=== PATIENT | male | born 1945 | race Hispanic/Latino ===

== ENCOUNTER → 2019-06-05 | Outpatient (CLI) | payer MEDICARE, OTHER ==
[~2019-06-05] MED LIST: ACTONEL150 MG PO; ASPIR 8181 MG PO; NAPROXEN500 MG PO; NEXIUM40 MG PO; PRAVASTATIN SOD40 MG PO
--- NOTE | 2019-06-05 16:40 | Diagnostic Imaging Report ---
EXAM: lumbar spine, 4 view Sacrum, 2 view DATE: 06/05/2019 INDICATION: Low back pain COMPARISON: None FINDINGS: No acute fracture or dislocation. There is grade 1 anterolisthesis of L5 on S1 with likely L5 pars defects. Moderate degenerative changes centered about L5-S1 with disc space narrowing, facet arthropathy and osteophyte formation. Surgical clips overlie the pelvis. IMPRESSION: No acute osseous injury. Degenerative changes with grade 1 anterolisthesis of L5 on S1. Signed by: Bianka Roman MD on 06/05/2019 4:37 PM
== END ==
LOC: RAD 15:28
PROVIDERS: ATTEND Internal Medicine
DX: M54.5 Low back pain (principal); M81.0 Age-related osteoporosis without current pathological fracture
CPT/HCPCS: 72110; 72220

== ENCOUNTER → 2019-07-17 | Outpatient (CLI) | payer MEDICARE, OTHER ==
--- NOTE | 2019-07-17 11:01 | Diagnostic Imaging Report ---
Chest, 2 views, 07/17/2019. History: Cough. Comparison: None available. Findings: The cardiomediastinal silhouette and pulmonary vasculature are within normal limits. There is biapical pleural thickening. The lungs are clear without evidence of consolidation or pleural effusion. Mild degenerative changes are noted in the thoracic spine. There are no acute osseous or soft tissue abnormalities. Impression: No acute cardiopulmonary abnormality. Signed by: Rosalio Valerio on 07/17/2019 10:58 AM
== END ==
LOC: RAD 10:10
PROVIDERS: ATTEND Internal Medicine
DX: J41.0 Simple chronic bronchitis (principal)
CPT/HCPCS: 71046

== ENCOUNTER → 2019-09-04 | Outpatient (CLI) | payer MEDICARE, OTHER ==
--- NOTE | 2019-09-04 14:52 | Diagnostic Imaging Report ---
Exam: Chest radiograph Clinical History: Chest pain Comparison: July 17, 2019 Findings: The cardiomediastinal silhouette and lungs are normal. The regional skeleton and soft tissue are unremarkable. There is no evidence of pleural effusion or pneumothorax. Impression: No radiographic evidence of acute cardiopulmonary disease. Mildly prominent bowel loops are noted below the left hemidiaphragm with air-fluid level which may represent ileus or enteritis. Recommend clinical correlation. Signed by: Dr. Jaun Martin MD on 09/04/2019 2:49 PM
== END ==
LOC: RAD 13:37
PROVIDERS: ATTEND Internal Medicine
DX: R07.89 Other chest pain (principal)
CPT/HCPCS: 71046

== ENCOUNTER → 2019-09-10 | Outpatient (CLI) | payer MEDICARE, OTHER ==
--- NOTE | 2019-09-10 19:01 | Diagnostic Imaging Report ---
Exam: Abdominal film Clinical History: Distended abdomen, possible ileus Comparison: None. DISCUSSION: Frontal view of the abdomen shows moderate to large amount of retained stool.Mild dilation of the transverse colon at the splenic flexure, which measures 7.7 cm in transverse diameter. No air-filled, dilated loops of small bowel. There are no abnormal calcifications. No pneumoperitoneum. Metallic clips project over the right hemiabdomen. IMPRESSION: 1. Mild dilation of the transverse colon at the splenic flexure. Moderate to large amount of retained stool suggesting constipation. No air-filled, dilated loops of small bowel. The staff physician below has personally reviewed this exam on the date of dictation. Signed by: Dr. Jose Rendon M.D. on 09/10/2019 6:58 PM
== END ==
LOC: RAD 17:07
PROVIDERS: ATTEND Internal Medicine
DX: K56.7 Ileus, unspecified (principal)
CPT/HCPCS: 74018

== ENCOUNTER 2020-02-28 18:28 | Observation (INO) | payer MEDICARE, OTHER ==
[~2020-02-28] VITALS: Ht 175.3 cm; Wt 83.9 kg
--- OUTSIDE RECORDS SUMMARY | 2020-02-28 18:32 | XMS REPORT ---
Author Author [facility] Address Unknown Phone Unavailable Care Team Providers Care Inventory Worker Name Role Phone Breann LOPEZ Unavailable Unavailable Problems This patient has no known problems. Allergies, Adverse Reactions, Alerts This patient has no known allergies or adverse reactions. Medications This patient has no known medications. Results Test Description Test Time Test Comments Text Results Atomic Results Result Comments ABDOMEN-1VIEW (KU) 2019-09-10 18:56:00 [place] [address] Patient Name: LENIN SPENCER MR #: [id number] : 1945 Age/Sex: 73/M Req #: [id number] Adm Physician: Ordered by: ROSIE LOPEZ MD Report #: [id number] Location: [facility] Room/Bed: Procedure: [id number] DX/ABDOMEN-1VIEW (KU) Exam Date: 09/10/19 Exam Time: 1710 REPORT STATUS: Signed Exam: Abdominal film Clinical History: Disten ded abdomen, possible ileus Comparison: None. DISCUSSION: Frontal view of the abdomen shows moderate to large amount of retained stool.Mild dilation of the transverse colon at the splenic flexure, which measures 7.7 cm in transverse diameter. No air-filled, dilated loops of small bowel. There are no abnormal calcifications. No pneumoperitoneum. Metallic clips project over the right hemiabdomen. IMPRESSION: 1. Mild dilation of the transverse colon at the splenic flexure. Moderate to large amount of retained stool suggesting constipation. No air-filled, dilated loops of small bowel. The staff physician below has personally reviewed this exam on the date of dictation. Signed by: Dr. Patsy Rendon M.D. on 09/10/2019 6:58 PM Dictated By: PATSY RENDON MD 57 Transcribed By: TYE on 09/10/191857 COPY TO: ROSIE LOPEZ MD CHEST 2 VIEWS 2019-09-04 14:46:00 [place] [address] Patient Name: LENIN SPENCER MR #: [id number] : 1945 Age/Sex: 73/M Req #: [id number] Adm Physician: Ordered by: ROSIE LOPEZ MD Report #: [id number] Location: [facility] Room/Bed: Procedure: [id number] DX/CHEST 2 VIEWS Exam Date: 09/04/19 Exam Time: 1410 REPORT STATUS: Signed Exam: Chest radiograph Clinical History: Chest pain Comparison: July 17, 2019 Findings: The cardiomediastinal silhouette and lungs are normal. The regional skeleton and soft tissue are unremarkable. There is no evidence of pleural effusion or pneumothorax. Impression: No radiographic evidence of acute cardiopulmonary disease. Mildly prominent bowel loops are noted below the left hemidiaphragm with air-fluid level which may represent ileus or enteritis. Recommend clinical correlation. Signed by: Dr. Jaun Martin MD on 09/04/2019 2:49 PM Dictated By: MARYURI MARTIN MD 48 Transcribed By: TYE on 09/04/191448 COPY TO: ROSIE LOPEZ MD CHEST 2 VIEWS 2019-07-17 10:57:00 [place] [address] Patient Name: LENIN SPENCER MR #: [id number] : 1945 Age/Sex: 73/M Req #: [id number] Adm Physician: Ordered by: ROSIE LOPEZ MD Report #: [id number] Location: [facility] Room/Bed: Procedure: [id number] DX/CHEST 2 VIEWS Exam Date: 07/17/19 Exam Time: 1025 REPORT STATUS: Signed Chest, 2 views, 07/17/2019. History: Cough. C omparison: None available. Findings: The cardiomediastinal silhouette and pulmonary vasculature are within normal limits. There is biapical pleural thickening. The lungs are clear without evidence of consolidation or pleural effusion. Mild degenerative changes are noted in the thoracic spine. There are no acute osseous or soft tissue abnormalities. Impression: No acute cardiopulmonary abnormality. Signed by: Rosalio Valerio on 07/17/2019 10:58 AM Dictated By: ROSALIO VALERIO MD 1058 Transcribed By: TYE on 07/17/198 COPY TO: ROSIE LOPEZ MD SACRUM X-RAY 2019-06-05 16:32:00 [place] [address] Patient Name: LENIN SPENCER MR #: [id number] : 1945 Age/Sex: 73/M Req #: [id number] Adm Physician: Ordered by: ROSIE LOPEZ MD Report #: [id number] Location: [facility] Room/Bed: Procedure: [id number] DX/SACRUM X-RAY Exam Date: 06/05/19 Exam Time: 1555 REPORT STATUS: Signed EXAM: lumbar spine, 4 view Sacrum, 2 view DATE: 06/05 INDICATION: Low back pain COMPARISON: None FINDINGS: No acute fracture or dislocation. There is grade 1 anterolisthesis of L5 on S1 with likely L5 pars defects. Moderate degenerative changes centered about L5-S1 with disc space narrowing, facet arthropathy and osteophyte formation. Surgical clips overlie the pelvis. IMPRESSION: No acute osseous injury. Degenerative changes with grade 1 anterolisthesis of L5 on S1. Signed by: Oral Walls MD on 06/05/2019 4:37 PM Dictated By: ORAL WALLS MD 36 Transcribed By: TYE on 06/05/19 1637 COPY TO: ROSIE LOPEZ MD SP LUMBAR, COMPLETE MIN 4VW 2019-06-05 16:32:00 [place] [address] Patient Name: LENIN SPENCER MR #: [id number] : 1945 Age/Sex: 73/M Req #: [id number] Adm Physician: Ordered by: ROSIE LOPEZ MD Report #: [id number] Location: [facility] Room/Bed: Procedure: [id number] DX/SP LUMBAR, COMPLETE MIN 4VW Exam Date: 06/05/19 Exam Time: 1555 REPORT STATUS: Signed EXAM: lumbar spine, 4 view Sacrum, 2 view DATE: 06/05/2019 INDICATION: Low back pain COMPARISON: None FINDINGS: No acute fracture or dislocation. There is grade 1 anterolisthesis of L5 on S1 with likely L5 pars defects. Moderate degenerative changes centered about L5-S1 with disc space narrowing, facet arthropathy and osteophyte formation. Surgical clips overlie the pelvis. IMPRESSION: No acute osseous injury. D egenerative changes with grade 1 anterolisthesis of L5 on S1. Signed by: Oral Walls MD on 06/05/2019 4:37 PM Dictated By: ORAL WALLS MD 0955 Transcribed By: TYE on 06/05/19 9456 COPY TO: ROSIE LOPEZ MD
[2020-02-28] MEDS ORDERED: ASPIRIN 81 MG CHEW TAB PO ONE (18:45)
[2020-02-28 19:16] LABS: BASOPHILS # (AUTO) 0.1 (0.0-0.1); BASOPHILS % 0.8 % (0.0-1.0); EOSINOPHILS # (AUTO) 0.2 (0.0-0.4); EOSINOPHILS % 3.8 % (0.0-6.0); HEMATOCRIT 42.3 % (38.2-49.6); HEMOGLOBIN 13.6 g/dL (14.0-18.0); LYMPHOCYTES # (AUTO) 1.8 (1.0-3.2); LYMPHOCYTES % 30.1 % (18.0-39.1); MEAN CORPUSCULAR HEMOGLOBIN 29.4 pg (28-32); MEAN CORPUSCULAR HGB CONC 32.2 g/dL (31-35); MEAN CORPUSCULAR VOLUME 91.4 fL (81-99); MONOCYTES # (AUTO) 0.4 (0.2-0.8); NEUTROPHILS # (AUTO) 3.5 (2.1-6.9); PLATELET COUNT 206 x10e3/uL (140-360); RED BLOOD COUNT 4.63 x10e6/uL (4.3-5.7); RED CELL DISTRIBUTION WIDTH 14.3 % (11.7-14.4)
--- NOTE | 2020-02-28 19:18 | NUR ---
RADIOLGY AT BEDSIDE FOR PORTABLE CXR.
[2020-02-28 19:26] LABS: INR 2.08; PROTHROMBIN TIME 24.9 seconds (11.9-14.5)
[2020-02-28 19:27] LABS: PARTIAL THROMBOPLASTIN TIME 38.3 seconds (23.8-35.5)
[2020-02-28 19:37] LABS: ALANINE AMINOTRANSFERASE 42 IU/L (0-55); ALBUMIN 3.9 g/dL (3.5-5.0); ALBUMIN/GLOBULIN RATIO 1.5 (0.8-2.0); ALKALINE PHOSPHATASE 73 IU/L (40-150); ANION GAP 12.2 mmol/L (8-16); BLOOD UREA NITROGEN 17 mg/dL (7-26); BUN/CREATININE RATIO 16 (6-25); CALCIUM 8.7 mg/dL (8.4-10.2); CARBON DIOXIDE 28 mmol/L (22-29); CHLORIDE 106 mmol/L (98-107); CREATINE KINASE 134 IU/L (30-200); CREATININE, SERUM 1.08 mg/dL (0.72-1.25); EST GLOMERULAR FILTRATION RATE > 60 ML/MIN (60-); GLUCOSE 116 mg/dL (74-118); POTASSIUM 4.2 mmol/L (3.5-5.1); SODIUM 142 mmol/L (136-145)
--- NOTE | 2020-02-28 19:50 | Diagnostic Imaging Report ---
EXAMINATION: CHEST SINGLE (PORTABLE) INDICATION: ERMD ORDER COMPARISON: Chest x-ray dated 09/04/2019 FINDINGS: AP view TUBES and LINES: None. LUNGS: Lungs are well inflated. There is mild prominence of the central pulmonary vasculature, consistent with pulmonary venous congestion. PLEURA: No pleural effusion or pneumothorax. HEART AND MEDIASTINUM: The cardiomediastinal silhouette is unremarkable. BONES AND SOFT TISSUES: No acute osseous lesion. Soft tissues are unremarkable. UPPER ABDOMEN: No free air under the diaphragm. IMPRESSION: Mild pulmonary venous congestion. Signed by: Terry Grove MD on 02/28/2020 7:46 PM
[2020-02-28] MEDS ORDERED: SODIUM CHLORIDE FLUSH 10 ML SYR INJ PRN (20:15)
[2020-02-28] MEDS ORDERED: ONDANSETRON HCL INJ 2MG/ML 2ML 2 MG/ML VIAL IV PRN (20:15)
--- NOTE | 2020-02-28 22:00 | NUR ---
Patient was brought from er in a wheel chair with c/o chest pain .not radiated. aaox4.ambulates.iv to left ac #20 patent.no resp.distress.no pain right now.tele#22 showing sinus yash.oriented to the unit.bed locked and in lowest position.phone and call light within reach.instructed to call for assistance as needed.echo to be done.as per the report from er is aware of the consults.
--- NOTE | 2020-02-28 22:10 | NUR ---
Assessment done.no resp.distress pain medication given.dressing to back is dry.ambulates.bed locked and in lowest position.phone and call light within reach.instricted to call for assistance as needed.
[2020-02-28 22:15] VITALS: BP 131/72
[2020-02-28 22:30] VITALS: BP 131/72
[2020-02-28] MEDS: FAMOTIDINE 20 MG/2 ML VIAL IV SCH (22:46)
[2020-02-28 23:00] VITALS: BP 109/55
[2020-02-29] VITALS (7 sets, daily range): BP systolic 114–136; BP diastolic 59–69
[2020-02-29] MEDS ORDERED: FOSAMAX70 MG PO (02:15)
[2020-02-29] MEDS ORDERED: XARELTO20 MG PO (02:15)
[2020-02-29] MEDS ORDERED: ATORVASTATIN CA20 MG PO (02:15)
[2020-02-29] MEDS ORDERED: LEVOCETIRIZINE D1 GM (02:15)
[2020-02-29] MEDS ORDERED: PROSCAR5 MG PO (02:15)
[2020-02-29] MEDS ORDERED: LEVOCETIRIZINE D5 MG PO (02:15)
[2020-02-29] MEDS ORDERED: MIDODRINE HCL2.5 MG PO (02:15)
[2020-02-29] MEDS ORDERED: METOPROLOL TART25 MG PO (02:15)
[2020-02-29 05:51] LABS: CREATINE KINASE MB 1.5 ng/mL (0-5.0)
[2020-02-29 06:08] LABS: CHOL/HDL RATIO 3.3 (3.9-4.7)
--- NOTE | 2020-02-29 06:10 | NUR ---
CONSULTS NOTIFIED AND SPOKE THROUGH ANSWERING SERVICE.
--- NOTE | 2020-02-29 07:00 | NUR ---
BED SIDE SHIFT REPORT GIVEN TO ONCOMING RN.STABLE CONDITION.
[2020-02-29] MEDS: FAMOTIDINE 20 MG/2 ML VIAL IV SCH ×2 (08:33→20:40)
--- NOTE | 2020-02-29 12:06 | History and Physical ---
He is a 74-year-old male patient of mine, presented to the emergency room with complaint of chest pain. HISTORY OF PRESENT ILLNESS: Mr. Zaheer Williamson is a 74-year-old male patient, who had recently presented to my office 3 days ago with dizziness and the patient on evaluation found to have atrial fibrillation with rapid ventricular rate. The patient was given Xarelto and metoprolol. The patient had a Holter monitor placed. That study showed the patient had paroxysmal atrial fibrillation, which converted to the sinus rhythm and then the patient came back for followup visit. The patient was having mild intermittent chest pain, which had disappeared , subsequently the patient has gone back to work and yesterday the patient's had called that the patient was having chest pain while he was working and the patient and brought into the emergency room. The patient is complaining of intermittent left-sided chest pain - pressure-type of pain, but not able to describe in detail. ALLERGIES: THE PATIENT IS ALLERGIC TO PENICILLIN. MEDICAL HISTORY: The patient has a history of atrial fibrillation with rapid rate in the past and history of colectomy, hypertension, hyperlipidemia, osteoporosis. PAST SURGICAL HISTORY: The patient had atrial fibrillation procedure done. The patient has a past surgical history of hysterectomy and sphincterectomy, patient has colonoscopy and partial colectomy. The patient has atrial fibrillation ablation procedure SOCIAL HISTORY: Denies smoking. Denies using alcohol. FAMILY HISTORY: Hypertension, hyperlipidemia. PHYSICAL EXAMINATION: VITAL SIGNS: Temperature 97.6, pulse rate 50, blood pressure 118/65, respirations 16, O2 saturation 96%. HEENT: Normocephalic, atraumatic. No JVD. LUNGS: Bilateral equal air entry. No rales, no rhonchi. HEART: S1, S2. Regular. No murmur. No gallop. ABDOMEN: Soft. Bowel sounds present. NEUROLOGICAL: No focal neurological deficits. EXTREMITIES: No edema. ALLERGIES: CHEST PAIN, ANGINA PECTORIS, RULE OUT AZ, PAROXYSMAL ATRIAL FIBRILLATION WITH VARIABLE HEART RATE. NOW THE PATIENT IS IN A SINUS RHYTHM. HYPERTENSION, BPH, AND HISTORY OF COLECTOMY. PLAN: The patient will be admitted with the above diagnoses. We will do serial EKG cardiac enzymes. We will obtain Cardiology evaluation, Dr. Jones. We will obtain previous report from the atrial fibrillation surgery. MD ELROY Bailey/GARYL /[id number] MTDEnrique
[2020-02-29 12:55] LABS: CREATINE KINASE MB 1.6 ng/mL (0-5.0)
[2020-02-29] MEDS ORDERED: SODIUM CHLORIDE 0.9% 500ML 500 ML IV ONE (14:00)
--- NOTE | 2020-02-29 14:48 | Diagnostic Imaging Report ---
EXAM: CT Chest WITH contrast- Pulmonary Embolism Protocol INDICATION: Pleuritic chest pain COMPARISON: Chest are graft of 02/28/2020 TECHNIQUE: Chest was scanned utilizing a multidetector helical scanner from the lung apex through the level of the diaphragm after administration of IV contrast. Thin section reconstructions were obtained with special concentration on the pulmonary arteries. Coronal and sagittal reformations were obtained. Pulmonary embolism protocol was performed. IV CONTRAST: 100 cc of Isovue 370 RADIATION DOSE: Total DLP: 607 mGy*cm Dose modulation, iterative reconstruction, and/or weight based adjustment of the mA/kV was utilized to reduce the radiation dose to as low as reasonably achievable. COMPLICATIONS: None FINDINGS: LINES/ TUBES: None. PULMONARY ARTERIES: No filling defect is identified within the pulmonary arteries to the segmental level. The subsegmental pulmonary arteries are not well opacified. Main pulmonary artery measures 2.8 cm in diameter. LUNGS AND AIRWAYS: The central airways are patent. No evidence of pneumonia or pulmonary edema. Minimal dependent atelectasis. PLEURA: The pleural spaces are clear. HEART AND MEDIASTINUM: The thyroid gland is normal. No mediastinal, hilar or axillary lymphadenopathy. The heart is normal in size.. There is no pericardial effusion. Scattered athetotic calcifications of the coronary arteries and thoracic aorta.. UPPER ABDOMEN: No acute findings. BONES: The visualized bony thorax is within normal limits. SOFT TISSUES: Unremarkable. IMPRESSION: No pulmonary embolism. No focal pneumonia or pulmonary edema. Signed by: Bianka Roman MD on 02/29/2020 2:45 PM
[2020-02-29] MEDS: LORATADINE 10 MG TAB PO SCH (15:23)
[2020-02-29] MEDS ORDERED: SODIUM CHLORIDE 0.9% 50ML 50 ML ONE (15:35)
[2020-02-29] MEDS ORDERED: IOPAMIDOL 370 MG/ML 200 ML INFUS..BTL INJ ONE (15:35)
[2020-02-29] MEDS: MIDODRINE 2.5 MG TAB PO SCH (16:31)
[2020-02-29] MEDS: METOPROLOL TARTRATE 25 MG TAB PO SCH (16:31)
[2020-02-29] MEDS ORDERED: METOPROLOL TARTRATE 25 MG TAB PO SCH (17:00)
--- NOTE | 2020-02-29 18:03 | Consultation ---
DATE OF CONSULTATION: 02/29/2020 Cardiology Consultation. CONSULTING PHYSICIAN: Collin Trevino MD. REASON FOR CONSULTATION: Chest pain. HISTORY OF PRESENT ILLNESS: Mr. Williamson is a 74-year-old pleasant man with a history of hypertension and dyslipidemia as well as paroxysmal atrial fibrillation for which he underwent PVI [place] [address] Cordon. He was noted at his primary care physician's office to have rapid heart rate in the 130s to 140s. He was initiated on beta-timo. He thereafter noted left-sided sharp chest discomfort, worse with inspiration or cough, unaffected by exertion, positions, meals, mild to moderate severity, lasting full day, now improved for which he went to the ER for further evaluation. At that time, he was in sinus bradycardia. His serial cardiac biomarkers were negative. He feels better today, however, does have mild intermittent pleuritic type chest discomfort still. REVIEW OF SYSTEMS: A 12 system reviewed, negative except for as noted above. PAST MEDICAL HISTORY: As per HPI. SOCIAL HISTORY: Denies active smoking, alcohol, or drugs. FAMILY HISTORY: Noncontributory. PHYSICAL EXAMINATION: VITAL SIGNS: Temperature 97.6, heart rate 51, blood pressure 118/65, respiratory rate 16, and O2 saturation 96%. GENERAL: In no acute distress and alert. NECK: No JVD or carotid bruit. CHEST: Clear to auscultation bilaterally. CARDIOVASCULAR: Regular rate and rhythm. Normal S1, S2. No S3 or S4. Systolic ejection murmur 1/6. ABDOMEN: Soft. Bowel sounds positive. EXTREMITIES: No edema. CARDIOVASCULAR MEDICATIONS: Reviewed: 1. Aspirin 81 mg daily. 2. Midodrine 2.5 mg b.i.d. 3. Atorvastatin 40 mg at bedtime. 4. Xarelto 20 mg daily. 5. Metoprolol tartrate 25 mg b.i.d. Telemetry reviewed, sinus bradycardia in the 40s to 50s. STUDIES: Reviewed, sodium 142, potassium 4.2, chloride 106, bicarbonate 28, BUN 17, creatinine 1.08, and glucose 116. White blood cells 6.1, hemoglobin 13.6, and platelets 206. AST 34, ALT 42, alkaline phosphatase 73, and INR 2.08. ASSESSMENT AND PLAN: 1. Atypical chest discomfort, pleuritic type. 2. Hypertension and dyslipidemia. 3. Paroxysmal atrial fibrillation. 4. Sinus bradycardia. 5. Orthostatic lightheadedness. RECOMMENDATIONS: Given pleuritic nature of chest discomfort at this point, pleurisy, pericarditis, pulmonary embolism, and pulmonary related/respiratory related etiology and musculoskeletal etiology are within the differential, less likely coronary etiology. The patient reports having had a reassuring stress test slightly over one year ago with his primary care physician's office. Sinus bradycardia is noted in the setting of underlying beta timo use. He does endorse lightheadedness while standing, no lightheadedness or syncope while sitting or lying down and no syncope whatsoever. Given this findings, we will recommend the followin. Decrease metoprolol to focal 5 mg every 12 hours and continue monitoring on telemetry while in-house. 2. CT chest with contrast PE protocol, ruling out pulmonary embolism and to evaluate for any intrinsic pulmonary pathology. Of note, on chest x-ray, he had pulmonary venous marking increase, this will be further clarify with CT. 3. Continue anticoagulation for now. Of note, the fact that the patient is on anticoagulation, deems less likely pulmonary embolism to be an etiology. However, workup as per above. 4. The patient has been ruled out for AMI. If CT negative and symptoms improved, consider trial of analgesics and outpatient followup within the following 2-4 weeks. Outpatient stress test electively at a later date also advised. MD TIA Lott/CHICO /[id number]
[2020-02-29] MEDS ORDERED: ATORVASTATIN 40 MG TAB PO SCH (21:00)
[2020-03-01] VITALS: BP 116/55
[2020-03-01 04:12] VITALS: BP 135/61
[2020-03-01 08:00] VITALS: BP 132/64
[2020-03-01 08:43] VITALS: BP 132/64
[2020-03-01] MEDS: MIDODRINE 2.5 MG TAB PO SCH ×2 (08:52→16:59)
[2020-03-01] MEDS: FAMOTIDINE 20 MG/2 ML VIAL IV SCH (08:53)
[2020-03-01] MEDS: METOPROLOL TARTRATE 25 MG TAB PO SCH ×2 (08:53→16:58)
[2020-03-01] MEDS: LORATADINE 10 MG TAB PO SCH (08:53)
[2020-03-01] MEDS ORDERED: NON-FORMULARY MEDICATION (Pravastatin Sodium 40 MG) PO SCH (09:00)
[2020-03-01] MEDS ORDERED: PANTOPRAZOLE SOD 40 MG TABEC PO SCH (09:00)
[2020-03-01] MEDS ORDERED: FINASTERIDE 5 MG TAB PO SCH (09:00)
[2020-03-01] MEDS ORDERED: RIVAROXABAN 20 MG TABLET PO SCH (09:00)
[2020-03-01] MEDS ORDERED: ASPIRIN 81 MG CHEW TAB PO SCH (09:00)
[2020-03-01 12:00] VITALS: BP 143/66
[2020-03-01 16:00] VITALS: BP 125/71
[2020-03-01] MEDS ORDERED: METOPROLOL TART25 MG PO (17:25)
--- NOTE | 2020-03-01 18:09 | NUR ---
Patient received a discharge order from Dr. Purcell. Patient was given referrals, continued and changed medications, and discussed his plan of care. Patient's IV was removed at 1735. Patient's IV was covered with a dry dressing. Patient was on his way to the door when Dr. Purcell stopped patient and asked that he wait until Dr. Jones comes by to see him. Patient is awaiting Dr. Jones in his room. Will continue to monitor. Addendum: 03/01/20 at 1833 by Meri Saunders RN Dr. Jones cleared patient to discharge. He was escorted to his 's car at 1825. Patient had no other issues or complaints.
--- NOTE | 2020-03-01 19:37 | Discharge Summary ---
He is a 74-year-old male patient of mine, presented to the emergency room with complaint of chest pain and dizziness. ADMITTING IMPRESSION AND DIAGNOSES: Unstable angina, rule out myocardial infarction, paroxysmal intermittent atrial fibrillation with variable heart rate and bradycardia and benign prostatic hyperplasia, hypertension . HOSPITAL COURSE SUMMARY: The patient was admitted with the above diagnosis. The patient had EKG and cardiac enzymes and acute CT was ruled out. The patient had Cardiology consultation with Dr. Jones. The patient had CT scan of the chest was done PE and pneumonia was ruled out. The patient remained asymptomatic and the patient and the patient was feeling better now. The patient will be discharged AND op cardiac cath will be done . The patient will continue his Xarelto and metoprolol dose has been reduced to 12.5 mg twice a day . The patient will continue on his other medications. DISCHARGE DIAGNOSES: Chest pain. Myocardial infarction ruled out. Intermittent atrial fibrillation with variable heart rate. Benign prostatic hyperplasia, hypertension, and hyperlipidemia. MD ELROY Bailey/CHICO /[id number] MICHAEL
[2020-03-01] MEDS ORDERED: TAMSULOSIN HCL 0.4 MG CAP PO SCH (21:00)
--- NOTE | 2020-03-01 21:57 | Progress Note ---
DATE: 03/01/2020 Cardiology Progress Note SUBJECTIVE: Pleuritic-type chest discomfort has resolved. Denies any exertional chest discomfort or dyspnea. Has no other complaints at this point. OBJECTIVE: VITAL SIGNS: Temperature 97.3, heart rate 51, blood pressure 125/71, respiratory rate 16, and O2 saturation 98%. GENERAL: In no acute distress, alert. NECK: No JVD. CHEST: Clear to auscultation. CARDIOVASCULAR: Regular rate and rhythm. Normal S1 and S2. ABDOMEN: Soft. Bowel sounds positive. EXTREMITIES: No edema. CARDIOVASCULAR MEDICATIONS: Reviewed, midodrine 2.5 mg b.i.d., metoprolol tartrate 12.5 mg b.i.d., aspirin 81 mg daily, atorvastatin 40 mg at bedtime, Xarelto 20 mg daily, and tamsulosin 0.4 mg at bedtime. STUDIES: Reviewed. Sodium 142, potassium 4.2, chloride 106, bicarbonate 28, BUN 17, creatinine 1.08, and glucose 116. White blood cell 6.1, hemoglobin 13.6, and platelets 206. INR 0.8, PT 24.9. AST 34, ALT 42, alkaline phosphatase 73, and total bilirubin 0.5. ASSESSMENT AND PLAN: 1. 74-year-old man presents with pleuritic-type chest discomfort, now resolved. 2. Paroxysmal atrial fibrillation. 3. Sinus bradycardia. 4. Coronary calcifications noted on CT. 5. Peripheral vascular disease with aortic calcification noted on CT. 6. Given symptom improvement and lack of exertional symptoms concerning for angina pectoris, at this point I suggest continuing medical management for underlying coronary artery disease and atherosclerotic vascular disease. Continue atorvastatin and aspirin as well as low-dose beta-timo. 7. Regarding thromboembolic risk prevention Xarelto advised. 8. Monitor for recurrent episodes of lightheadedness, particularly if occurring or related to positional changes. Outpatient heart monitor advised once seen in office and coordinate. For now, rule out for AMI. Continue current cardiovascular medications and fu with primary care as well as with Cardiology. Collin Trevino MD AFV/MODL /[id number] MICHAEL
[2020-03-03] MEDS ORDERED: ALENDRONATE SODIUM 70 MG TAB PO SCH (06:00)
[2020-03-06] MEDS ORDERED: FLOMAX0.4 MG PO (14:36)
== END 2020-03-01 19:00 | disposition home or self-care (01) ==
LOC: ER 18:28 → ERHOLD 20:06 → MED/SURG 22:15
PROVIDERS: ADMIT Internal Medicine; ATTEND Internal Medicine
DX: I48.0 Paroxysmal atrial fibrillation (principal); I10 Essential (primary) hypertension; N40.0 Benign prostatic hyperplasia without lower urinary tract symptoms; Z90.3 Acquired absence of stomach [part of]; E78.5 Hyperlipidemia, unspecified; I73.9 Peripheral vascular disease, unspecified; R07.89 Other chest pain; I25.119 Atherosclerotic heart disease of native coronary artery with unspecified angina pectoris
CPT/HCPCS: 36415 ×2; 71045; 71260; 80053; 80061; 82550 ×2; 82553 ×2; 83880; 84484 ×2; 85025; 85610; 85730; 93005; 93306; 96361; 99284; G0378 ×3; J7040; Q9967; S0164; 96360

== ENCOUNTER → 2020-03-07 | Day surgery (SDC) | payer MEDICARE, OTHER ==
[2020-03-06 15:03] LABS: BASOPHILS % 0.5 % (0.0-1.0); EOSINOPHILS # (AUTO) 0.2 (0.0-0.4); EOSINOPHILS % 2.6 % (0.0-6.0); HEMATOCRIT 46.4 % (38.2-49.6); HEMOGLOBIN 15.6 g/dL (14.0-18.0); LYMPHOCYTES # (AUTO) 1.6 (1.0-3.2); LYMPHOCYTES % 25.6 % (18.0-39.1); MEAN CORPUSCULAR HEMOGLOBIN 30.2 pg (28-32); MEAN CORPUSCULAR HGB CONC 33.6 g/dL (31-35); MEAN CORPUSCULAR VOLUME 89.7 fL (81-99); MONOCYTES # (AUTO) 0.5 (0.2-0.8); MONOCYTES % 7.9 % (4.4-11.3); NEUTROPHILS # (AUTO) 3.8 (2.1-6.9); NEUTROPHILS % 63.1 % (38.7-80.0); PLATELET COUNT 215 x10e3/uL (140-360); RED BLOOD COUNT 5.17 x10e6/uL (4.3-5.7); RED CELL DISTRIBUTION WIDTH 13.7 % (11.7-14.4)
[2020-03-06 15:14] LABS: INR 1.1; PROTHROMBIN TIME 14.9 seconds (11.9-14.5)
[2020-03-06 15:15] LABS: PARTIAL THROMBOPLASTIN TIME 29.2 seconds (23.8-35.5)
[2020-03-06 15:21] LABS: ALANINE AMINOTRANSFERASE 23 IU/L (0-55); ALBUMIN 4.1 g/dL (3.5-5.0); ALBUMIN/GLOBULIN RATIO 1.4 (0.8-2.0); ALKALINE PHOSPHATASE 70 IU/L (40-150); ANION GAP 11.3 mmol/L (8-16); BLOOD UREA NITROGEN 15 mg/dL (7-26); BUN/CREATININE RATIO 14 (6-25); CALCIUM 9.3 mg/dL (8.4-10.2); CARBON DIOXIDE 29 mmol/L (22-29); CHLORIDE 106 mmol/L (98-107); CREATININE, SERUM 1.06 mg/dL (0.72-1.25); EST GLOMERULAR FILTRATION RATE > 60 ML/MIN (60-); GLUCOSE 109 mg/dL (74-118); POTASSIUM 4.3 mmol/L (3.5-5.1); SODIUM 142 mmol/L (136-145)
[2020-03-06 15:40] LABS: CHOL/HDL RATIO 3.8 (3.9-4.7)
[~2020-03-07] VITALS: Ht 172.7 cm; Wt 83.5 kg
[2020-03-07] VITALS (8 sets, daily range): BP systolic 100–122; BP diastolic 50–74
[~2020-03-07] MED LIST changes: +ASPIRIN 325 MG TAB ONE; +ATORVASTATIN CA20 MG PO; +FENTANYL CITRATE/PF 100MCG/2 ML INJ ONE; +FLOMAX0.4 MG PO; +FOSAMAX70 MG PO; +HEPARIN SOD/SOD CHLORIDE 2,000 ML ONE; +IOPAMIDOL 370 MG/ML 200 ML INFUS..BTL INJ ONE; +LEVOCETIRIZINE D1 GM; +LEVOCETIRIZINE D5 MG PO; +LIDOCAINE HCL 2% LOCAL 20 ML VIAL ONE; +METOPROLOL TART25 MG PO; +MIDAZOLAM HCL 2 MG/2 ML VIAL ONE; +MIDODRINE HCL2.5 MG PO; +PROSCAR5 MG PO; +SODIUM CHLORIDE 0.9% 1000ML 1,000 ML ONE; +VERAPAMIL HCL 2.5 MG/ML 2 ML VIAL ONE; +XARELTO20 MG PO
--- NOTE | 2020-03-07 11:19 | NUR ---
1100 am RECEIVING NOTE [employer]OV[employer] DEPT............................................................... Bedside report received from RODRIGUE Eubanks. Identifierx2. Alert oriented and appropriate, PERRLA, respirations even and unlabored to room air. Pulses x4 extremities equal and strong. Pedal pulses PT/DP X4 and marked. Cap fill brisk < 3 sec. TR band to rt wrist NO gross issues pain,pallor,pressure or dysrhythmia. TR band air release at 1230 dc home 1pm. No fix home at 115pm. Skin warm and dry integrity appears D/I. IV 20g to left hand at 200cchr via iv controller, presents healthy w/o s/s of infiltration or complaint. Abdomen soft and supple. pt offered toileting, denies need to urinate or defecate. No personal affects with patient. Family at bedside. Pt and family verbalizes understanding of POC. Denies CP or SOB Currently w/o complaint of pain or need.ds/rn
--- NOTE | 2020-03-07 12:30 | NUR ---
1230p RADIAL COMPRESSION REMOVAL NOTE: Initial Cuff volume 12 cc 1230p -2cc Removed No hematoma/bleeding noted with normal neurovascular function. 1245p -5cc Removed No hematoma/ bleeding noted with normal neurovascular function. 1300p -5cc Removed No hematoma/bleeding noted with normal neurovascular function. Air removal completed. Stasis achieved sterile 2x2,Tegaderm, Coban dressing No hematoma, bleeding noted with normal neurovascular function. Wrist splint in place. Pt instructed on POC. Ds/Rn
--- NOTE | 2020-03-07 13:15 | NUR ---
1315pm [employer]OV[employer] DISCHARGE NURSING NOTE Pt meets DC criteria. Rt radial assessed for s/s of complication and presence of hematoma. Skin warm, dry, no discolor, and pulses present. IV removed from left hand. Distal tip appears intact. VS WNL. Pt denies pain, sob, or need at this time. Family at bedside. Review of discharge paperwork and follow up instructions. verbalized understanding. Pt to wheelchair and transported to front of hospital. Transferred to private vehicle under own strength w/o incident with DC paperwork in hand. - lyndsey/tammie
--- NOTE | 2020-03-07 14:00 | Operative Report ---
DATE OF PROCEDURE: 03/07/2020 SURGEON: Collin Trevino MD PROCEDURE INDICATION: Unstable angina in a patient with coronary calcifications on CT. Symptoms worsening in spite of attempted trial of medical therapy. The patient with a history of atrial fibrillation and episodes of sinus bradycardia. PROCEDURE PERFORMED: 1. Left heart catheterization. 2. Selective coronary angiography. COMPLICATIONS: None. ESTIMATED BLOOD LOSS: Less than 15 mL. PROCEDURE SUMMARY: After consent was obtained, the patient is prepped and draped in a sterile fashion. The right radial site was locally infiltrated with 2% lidocaine and access was obtained with a single anterior stick. A 5-British outer diameter slender sheath was advanced into the right radial artery after a local administration of lidocaine and radial cocktail of 300 mcg of nitroglycerin and 5000 units of heparin and 2.5 mg of verapamil were administered via the radial sheath. TIG catheter was advanced to cross the aortic valve and then to engage the left main for angiography performed in multiple views. Right coronary artery was initially engaged with a TIG catheter, however, possible spasm versus vessel catheter related angulation was observed. Therefore, the catheter exchanged initially for multipurpose 4-British and thereafter for a 4-British 3DRC, which was ultimately used for engagement of the right coronary artery. Nitroglycerin 200 mcg were administered to the right radial artery to release suspected spasm at the ostium with improvement in ostial narrowing and residual less than 30% ostial stenosis of the right coronary artery was observed post nitroglycerin with intracoronary to right coronary artery. These were the following findings. 1. LV pressure was 124/7 with end-diastolic pressure of 13. 2. Aortic pressure was 115/67. 3. No left ventriculogram was performed. 4. Mild to moderate calcifications are noted throughout the LM which has luminal irregularities and gives off an LAD and circumflex. 5. LAD with luminal irregularities in the proximal segment, it gives a couple of septal perforators and 2 diagonal. The first diagonal has 30% ostial stenosis. Luminal irregularities are noted throughout the rest of the left anterior descending artery. 6. Circumflex is large in caliber. It gives high takeoff first, small caliber obtuse marginal, 2nd small obtuse marginal and two left posterolateral branches, mild calcifications and luminal irregularities are noted throughout the circumflex and its branches. 7. Right coronary artery, as described above has upward hart's hook takeoff with ostial 30% stenosis. There are couple of RV marginals arise from this vessel, which terminates into RPLV and RPDA. The RPDA is small in caliber, so is the RPLV. CONCLUSION: 1. 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 2. LVEDP of 13 with normal blood pressure control. RECOMMENDATIONS: 1. Wean TR band. 2. IV fluids. 3. Continue medical management for coronary artery disease. 4. Schedule telemetry monitoring as outpatient for further evaluation of suspected sick sinus syndrome as possible etiology for patient's exertional symptoms. Outpatient followup in 4 weeks post discharge. MD TIA Lott/[facility]ICO /[id number] MTDD
== END | disposition home or self-care (01) ==
LOC: CATH LAB 08:05
PROVIDERS: ATTEND Internal Medicine Cardiovascular Disease
DX: I25.110 Atherosclerotic heart disease of native coronary artery with unstable angina pectoris (principal); I48.0 Paroxysmal atrial fibrillation; I10 Essential (primary) hypertension; E78.5 Hyperlipidemia, unspecified; Z88.0 Allergy status to penicillin; Z01.810 Encounter for preprocedural cardiovascular examination; Z01.812 Encounter for preprocedural laboratory examination; Z79.02 Long term (current) use of antithrombotics/antiplatelets; Z79.82 Long term (current) use of aspirin
CPT/HCPCS: 36415; 80053; 80061; 85025; 85610; 85730; 93005; 93458; 99152; C1887; J2001; J2250; J3010; J7030; Q9967

== ENCOUNTER 2020-05-06 15:00 | Outpatient (RCR) | payer MEDICARE, OTHER ==
[~2020-05-06 15:00] MED LIST changes: -ASPIRIN 325 MG TAB ONE; -FENTANYL CITRATE/PF 100MCG/2 ML INJ ONE; -HEPARIN SOD/SOD CHLORIDE 2,000 ML ONE; -IOPAMIDOL 370 MG/ML 200 ML INFUS..BTL INJ ONE; -LIDOCAINE HCL 2% LOCAL 20 ML VIAL ONE; -MIDAZOLAM HCL 2 MG/2 ML VIAL ONE; -SODIUM CHLORIDE 0.9% 1000ML 1,000 ML ONE; -VERAPAMIL HCL 2.5 MG/ML 2 ML VIAL ONE
[2020-05-19] MEDS ORDERED: LIPITOR20 MG PO (15:52)
== END 2020-05-27 ==
LOC: PT 15:00
PROVIDERS: ATTEND Orthopaedic Surgery
DX: M54.16 Radiculopathy, lumbar region (principal)

== ENCOUNTER → 2020-05-21 | Day surgery (SDC) | payer MEDICARE, OTHER ==
[2020-05-16 10:57] LABS: BASOPHILS % 0.6 % (0.0-1.0); EOSINOPHILS # (AUTO) 0.1 (0.0-0.4); EOSINOPHILS % 1.2 % (0.0-6.0); HEMATOCRIT 42.9 % (38.2-49.6); HEMOGLOBIN 14.3 g/dL (14.0-18.0); LYMPHOCYTES # (AUTO) 1.7 (1.0-3.2); LYMPHOCYTES % 32.2 % (18.0-39.1); MEAN CORPUSCULAR HEMOGLOBIN 29.7 pg (28-32); MEAN CORPUSCULAR HGB CONC 33.3 g/dL (31-35); MONOCYTES # (AUTO) 0.4 (0.2-0.8); MONOCYTES % 7.7 % (4.4-11.3); NEUTROPHILS % 58.1 % (38.7-80.0); PLATELET COUNT 215 x10e3/uL (140-360); RED BLOOD COUNT 4.82 x10e6/uL (4.3-5.7)
[2020-05-16 11:20] LABS: ANION GAP 9.6 mmol/L (8-16); BLOOD UREA NITROGEN 12 mg/dL (7-26); BUN/CREATININE RATIO 13 (6-25); CALCIUM 8.9 mg/dL (8.4-10.2); CARBON DIOXIDE 29 mmol/L (22-29); CHLORIDE 105 mmol/L (98-107); CREATININE, SERUM 0.96 mg/dL (0.72-1.25); EST GLOMERULAR FILTRATION RATE > 60 ML/MIN (60-); GLUCOSE 92 mg/dL (74-118); POTASSIUM 4.6 mmol/L (3.5-5.1); SODIUM 139 mmol/L (136-145)
[2020-05-16 11:39] LABS: INR 1.97; PROTHROMBIN TIME 23.8 seconds (11.9-14.5)
[~2020-05-21] VITALS: Ht 172.7 cm; Wt 83.9 kg
[2020-05-21] VITALS (8 sets, daily range): BP systolic 120–136; BP diastolic 66–77
[~2020-05-21] MED LIST changes: +BACITRACIN 50,000 UNIT VIAL ONE; +FENTANYL CITRATE/PF 100MCG/2 ML INJ ONE; +LIDOCAINE HCL 2% LOCAL 20 ML VIAL ONE; +LIPITOR20 MG PO; +MIDAZOLAM HCL 2 MG/2 ML VIAL ONE; +SODIUM CHLORIDE 0.9% 1000ML 2,000 ML ONE; +SODIUM CHLORIDE 0.9% 500ML 500 ML ONE; +VANCOMYCIN 1GM/NS 250 ML 500 ML ONE
--- NOTE | 2020-05-21 09:15 | NUR ---
0915 am RECEIVING NOTE INTERCEPTOR OPERATOR RECOVERY DEPT............................................................... Bedside report received from RODRIGUE Galvez. Identifierx2. Alert oriented and appropriate, PERRLA, respirations even and unlabored to room air. Pulses x4 extremeness equal and strong. Pedal pulses PT/DP X4 Cap fill brisk < 3 sec. Left sc dressing dry and intact Monitor periodic paced rhythm. Pacer ed done by team. Skin warm and dry integrity appears D/I. IV 20g left hand, presents healthy w/o s/s of infiltration or complaint. Abdomen soft and supple. pt offered toileting, denies need to urinate or defecate. No personal affects with patient. Family Keli at bedside.. Pt and family verbalizes understanding of POC. Currently w/o complaint of pain or need.lyndsey/rn
--- NOTE | 2020-05-21 09:34 | Diagnostic Imaging Report ---
EXAM: CHEST SINGLE (PORTABLE) DATE: 05/21/2020 9:10 AM INDICATION: Post pacemaker placement COMPARISON: 02/28/2020 FINDINGS: There has been interval placement of a dual lead left-sided pacing device with lead tips projecting over the expected locations of the right atrium and ventricle. There is no evidence for pneumothorax status post pacemaker placement. The trachea is midline. There are stable mild elevation of the right hemidiaphragm. There are mildly increased bibasilar opacity suggestive of atelectasis. There is no evidence for large focal consolidation or significant pleural effusion. The cardiac mediastinal silhouette is stable in appearance. No acute osseous abnormality is identified. IMPRESSION: No evidence of pneumothorax or other acute cardiopulmonary process status post pacer placement. Signed by: Dr. Louis Oro MD on 05/21/2020 9:30 AM
--- NOTE | 2020-05-21 10:21 | Operative Report ---
DATE OF PROCEDURE: 05/21/2020 SURGEON: Michele Brown MD PREPROCEDURE DIAGNOSES: 1. Symptomatic bradycardia. 2. Sick sinus syndrome. 3. No reversible causes. POSTPROCEDURE DIAGNOSES: 1. Symptomatic bradycardia. 2. Sick sinus syndrome. 3. No reversible causes. ESTIMATED BLOOD LOSS: 10 mL. COMPLICATIONS: None. PROCEDURES PERFORMED: 1. Dual-chamber pacemaker placement. 2. Moderate sedation. Moderate conscious sedation was provided under my direct supervision by sedation trained nurse. Sedation approximate time 30 minutes, Versed and fentanyl. There were no complications. See sedation form for details. DESCRIPTION OF PROCEDURE: After informed consent was obtained, the patient was brought to the electrophysiology laboratory in a fasting, nonsedated state. Area over his chest was prepped and draped in the usual sterile fashion. Moderate sedation and prophylactic antibiotic were given. 1% lidocaine was used as local anesthetic and a 3-cm skin incision was made in the left subclavicular area. Electrocautery, sharp and blunt dissection were used to bridge the muscular fascia and a pocket was created for event implantation of the device. Vascular access was obtained x2 in the left axillary vein using modified Seldinger technique under fluoroscopic guidance. Two sheaths were placed. Ventricular lead to the RV apex. R-wave 13, pacing 0.4 at 0.4, impedance 770. Atrial lead to the right atrial appendage, P-wave 2, pacing one at 0.4, impedance 720. Sheaths were removed from the body. Leads were secured through fascia using Ethibond. Pocket was irrigated with antibiotic solution using the pulse electro mechanical designer. Hemostasis was meticulous. Leads connected to the device and entire pacemaker system placed in the pocket. We put vancomycin powder in the pocket. Incision was closed using absorbable sutures and Dermabond. The patient tolerated the procedure well. Procedure was then completed. SUMMARY OF HARDWARE IMPLANTED: The new pacemaker is [employer], serial #[id number]. Atrial lead is [employer], [id number]. Ventricular lead is [employer], [id number]. IMPRESSION: Successful dual-chamber pacemaker implant via left axillary vein. PLAN: 1. Routine postop monitoring, on telemetry bed. 2. Chest x-ray. 3. Follow up in two weeks. MD RIGOBERTO Olson/MODL /[id number]
--- NOTE | 2020-05-21 10:30 | NUR ---
1030a tolerated breakfast CXR-RAY done, Spoke with Nurse practitioner Karlo pt may return to work in 1wk but no driving for 2wks. Denies CP or SOB Left Chest dressing dry and intact. ds/rn
--- NOTE | 2020-05-21 12:00 | NUR ---
1200 pm APPLIANCE TECHNICIAN RECOVERY DISCHARGE NURSING NOTE Received confirmation DR George office(Nurse practitioner Karlo HUSAIN) ok for dc at 12noon.f/o 2wks no driving 2wks shoulder sling on at night after 24hrs remove left sc dressing in 3days Tuesday.Pt meets DC criteria. Back to baseline orientation. Tolerating po intake. NO gross issues pain,pallor,pressure or dysrhythmia. Left sc assessed for s/s of complication and presence of hematoma. Skin warm, dry, no discolor, and pulses present. IV removed from left hand, Distal tip appears intact. VS WNL. Pt denies pain, sob, or need at this time. Family at at bedside dc planning completed. Review of discharge paperwork and follow up instructions. verbalized understanding. Pt to wheelchair and transported to front of hospital. Transferred to private vehicle under own strength w/o incident with DC paperwork in hand. - ds/rn
== END | disposition home or self-care (01) ==
LOC: CATH LAB 06:10
PROVIDERS: ATTEND Internal Medicine
DX: I49.5 Sick sinus syndrome (principal); I48.91 Unspecified atrial fibrillation; R53.82 Chronic fatigue, unspecified; I10 Essential (primary) hypertension; E78.5 Hyperlipidemia, unspecified; E11.9 Type 2 diabetes mellitus without complications; Z88.0 Allergy status to penicillin; Z01.812 Encounter for preprocedural laboratory examination; Z11.59 Encounter for screening for other viral diseases; Z79.82 Long term (current) use of aspirin; Z79.02 Long term (current) use of antithrombotics/antiplatelets; Z68.31 Body mass index [BMI] 31.0-31.9, adult
CPT/HCPCS: 33208; 36415; 71045; 80048; 85025; 85610; 87635; C1785; C1898; J2001; J2250; J3010; J3370; J7030; J7040; 99152; 99153

== ENCOUNTER 2020-06-14 21:47 | Emergency (ER) | payer MEDICARE, OTHER ==
[~2020-06-14] VITALS: Ht 172.7 cm; Wt 83.9 kg
[~2020-06-14 21:47] MED LIST changes: -BACITRACIN 50,000 UNIT VIAL ONE; -FENTANYL CITRATE/PF 100MCG/2 ML INJ ONE; -LIDOCAINE HCL 2% LOCAL 20 ML VIAL ONE; -MIDAZOLAM HCL 2 MG/2 ML VIAL ONE; -SODIUM CHLORIDE 0.9% 1000ML 2,000 ML ONE; -SODIUM CHLORIDE 0.9% 500ML 500 ML ONE; -VANCOMYCIN 1GM/NS 250 ML 500 ML ONE
[2020-06-14 22:16] LABS: BASOPHILS % 0.5 % (0.0-1.0); EOSINOPHILS # (AUTO) 0.2 (0.0-0.4); EOSINOPHILS % 2.6 % (0.0-6.0); HEMATOCRIT 45.1 % (38.2-49.6); HEMOGLOBIN 14.8 g/dL (14.0-18.0); LYMPHOCYTES % 32.1 % (18.0-39.1); MEAN CORPUSCULAR HEMOGLOBIN 29.1 pg (28-32); MEAN CORPUSCULAR HGB CONC 32.8 g/dL (31-35); MEAN CORPUSCULAR VOLUME 88.8 fL (81-99); MONOCYTES # (AUTO) 0.5 (0.2-0.8); NEUTROPHILS # (AUTO) 3.5 (2.1-6.9); NEUTROPHILS % 56.3 % (38.7-80.0); PLATELET COUNT 231 x10e3/uL (140-360); RED BLOOD COUNT 5.08 x10e6/uL (4.3-5.7); RED CELL DISTRIBUTION WIDTH 13.8 % (11.7-14.4)
[2020-06-14 22:25] LABS: INR 1.36; PARTIAL THROMBOPLASTIN TIME 32.4 seconds (23.8-35.5); PROTHROMBIN TIME 17.7 seconds (11.9-14.5)
[2020-06-14 22:35] LABS: ALANINE AMINOTRANSFERASE 32 IU/L (0-55); ALBUMIN 4.1 g/dL (3.5-5.0); ALBUMIN/GLOBULIN RATIO 1.3 (0.8-2.0); ALKALINE PHOSPHATASE 74 IU/L (40-150); BLOOD UREA NITROGEN 16 mg/dL (7-26); BUN/CREATININE RATIO 15 (6-25); CALCIUM 9.5 mg/dL (8.4-10.2); CARBON DIOXIDE 27 mmol/L (22-29); CHLORIDE 105 mmol/L (98-107); CREATINE KINASE 67 IU/L (30-200); EST GLOMERULAR FILTRATION RATE > 60 ML/MIN (60-); GLUCOSE 123 mg/dL (74-118); SODIUM 141 mmol/L (136-145)
--- NOTE | 2020-06-14 22:55 | Emergency Department Note ---
History of Present Illnes History of Present Illness Chief Complaint: Chest Pain History of Present Illness This is a 74 year old male brought in by [facility] for c/o intermittent chest pressure that started at about 1400 today. Patient states he has had about 5 episodes that lasted about 10 seconds each time. Patient denies chest pressure at this time. . Historian: Patient Arrival Mode: Car Onset (how long ago): hour(s) (8) Location: LEFT CHEST Quality: INTERMITTENT SHARP CHEST PAIN Radiation: Reports non-radiation Severity: moderate Onset quality: sudden Duration (how long): hour(s) (8) Timing of current episode: intermittent Progression: unchanged Chronicity: new Context: Reports recent surgery (PACE MAKER PLACED ONE WEEK AGO); Denies recent illness Relieving factors: none Exacerbating factors: none Associated symptoms: Reports denies other symptoms Treatments prior to arrival: none Past Medical/Family History Physician Review I have reviewed the patient's past medical and family history. Any updates have been documented here. Past Medical History Recent Fever: No Clinical Suspicion of Infectio: No New/Unexplained Change in Ment: No Past Medical History: Hypertension, A-Fib, GERD, Hyperlipedemia Other Medical History: HEMMOROIDS, HIGH CHOLESTEROL,OSTEOPOROSIS Past Surgical History: Colon Resection Other Surgery: COLONOSCOPY W POLYP REMOVAL PARTIAL COLECTOMY Social History Smoking Cessation: Unknown if ever smoked Counseling Performed: No Any Illegal Drug Use: No Family History Family history of heart diseas: Yes Other Last Tetanus: UNK Any Pre-Existing Lines (PICC,: No Review of Systems Review of Systems Constitutional: Reports no symptoms EENTM: Reports no symptoms Cardiovascular: Reports as per HPI Respiratory: Reports no symptoms Gastrointestinal: Reports no symptoms Genitourinary: Reports no symptoms Musculoskeletal: Reports no symptoms Integumentary: Reports no symptoms Neurological: Reports no symptoms Psychological: Reports no symptoms Endocrine: Reports no symptoms Hematological/Lymphatic: Reports no symptoms Physical Exam Related Data Allergies: Coded Allergies: Penicillins (Verified Allergy, Mild, RASH, 02/28/20) codeine (Verified Allergy, Unknown, HIVES, RASH, 03/06/20) Triage Vital Signs Vital Signs Date Time Temp Pulse Resp B/P (MAP) Pulse Ox O2 Delivery O2 Flow Rate FiO2 06/14/20 21:50 98.2 101 17 141/90 96 Room Air Vital signs reviewed: Yes Physical Exam CONSTITUTIONAL Constitutional: Present well-developed, Present well-nourished HENT HENT: Present normocephalic, Present atraumatic, Present oropharynx clear/moist, Present nose normal HENT L/R: Present left ext ear normal, Present right ext ear normal EYES Eyes: Reports PERRL, Reports conjunctivae normal NECK Neck: Present ROM normal PULMONARY Pulmonary: Present effort normal, Present breath sounds normal CARDIOVASCULAR Cardiovascular: Present regular rhythm, Present heart sounds normal, Present capillary refill normal, Present normal rate GASTROINTESTINAL Abdominal: Present soft, Present nontender, Present bowel sounds normal GENITOURINARY Genitourinary: Present exam deferred SKIN Skin: Present warm, Present dry MUSCULOSKELETAL Musculoskeletal: Present ROM normal NEUROLOGICAL Neurological: Present alert, Present oriented x 3, Present no gross motor or sensory deficits PSYCHOLOGICAL Psychological: Present mood/affect normal, Present judgement normal Results Laboratory Result Diagram: 06/14/202199 Laboratory Laboratory Tests Test 06/15/20 01:50 06/14/20 22:00 Creatine Kinase 58 IU/L (30-200) 67 IU/L (30-200) Creatine Kinase MB 1.00 ng/mL (0-5.0) 1.20 ng/mL (0-5.0) Troponin I 0.001 ng/mL (0-0.300) < 0.001 ng/mL (0-0.300) White Blood Count 6.23 x10e3/uL (4.8-10.8) Red Blood Count 5.08 x10e6/uL (4.3-5.7) Hemoglobin 14.8 g/dL (14.0-18.0) Hematocrit 45.1 % (38.2-49.6) Mean Corpuscular Volume 88.8 fL (81-99) Mean Corpuscular Hemoglobin 29.1 pg (28-32) Mean Corpuscular Hemoglobin Concent 32.8 g/dL (31-35) Red Cell Distribution Width 13.8 % (11.7-14.4) Platelet Count 231 x10e3/uL (140-360) Neutrophils (%) (Auto) 56.3 % (38.7-80.0) Lymphocytes (%) (Auto) 32.1 % (18.0-39.1) Monocytes (%) (Auto) 8.0 % (4.4-11.3) Eosinophils (%) (Auto) 2.6 % (0.0-6.0) Basophils (%) (Auto) 0.5 % (0.0-1.0) Neutrophils # (Auto) 3.5 (2.1-6.9) Lymphocytes # (Auto) 2.0 (1.0-3.2) Monocytes # (Auto) 0.5 (0.2-0.8) Eosinophils # (Auto) 0.2 (0.0-0.4) Basophils # (Auto) 0.0 (0.0-0.1) Absolute Immature Granulocyte (auto 0.03 x10e3/uL (0-0.1) Prothrombin Time 17.7 seconds (11.9-14.5) Prothromb Time International Ratio 1.36 Activated Partial Thromboplast Time 32.4 seconds (23.8-35.5) Sodium Level 141 mmol/L (136-145) Potassium Level 4.0 mmol/L (3.5-5.1) Chloride Level 105 mmol/L (98-107) Carbon Dioxide Level 27 mmol/L (22-29) Anion Gap 13.0 mmol/L (8-16) Blood Urea Nitrogen 16 mg/dL (7-26) Creatinine 1.10 mg/dL (0.72-1.25) Estimat Glomerular Filtration Rate > 60 ML/MIN (60-) BUN/Creatinine Ratio 15 (6-25) Glucose Level 123 mg/dL (74-118) Calcium Level 9.5 mg/dL (8.4-10.2) Total Bilirubin 0.3 mg/dL (0.2-1.2) Aspartate Amino Transf (AST/SGOT) 25 IU/L (5-34) Alanine Aminotransferase (ALT/SGPT) 32 IU/L (0-55) Alkaline Phosphatase 74 IU/L (40-150) B-Type Natriuretic Peptide 13.3 pg/mL (0-100) Total Protein 7.2 g/dL (6.5-8.1) Albumin 4.1 g/dL (3.5-5.0) Globulin 3.1 g/dL (2.3-3.5) Albumin/Globulin Ratio 1.3 (0.8-2.0) Laboratory Tests Test 06/14/20 22:00 White Blood Count 6.23 x10e3/uL (4.8-10.8) Red Blood Count 5.08 x10e6/uL (4.3-5.7) Hemoglobin 14.8 g/dL (14.0-18.0) Hematocrit 45.1 % (38.2-49.6) Mean Corpuscular Volume 88.8 fL (81-99) Mean Corpuscular Hemoglobin 29.1 pg (28-32) Mean Corpuscular Hemoglobin Concent 32.8 g/dL (31-35) Red Cell Distribution Width 13.8 % (11.7-14.4) Platelet Count 231 x10e3/uL (140-360) Neutrophils (%) (Auto) 56.3 % (38.7-80.0) Lymphocytes (%) (Auto) 32.1 % (18.0-39.1) Monocytes (%) (Auto) 8.0 % (4.4-11.3) Eosinophils (%) (Auto) 2.6 % (0.0-6.0) Basophils (%) (Auto) 0.5 % (0.0-1.0) Neutrophils # (Auto) 3.5 (2.1-6.9) Lymphocytes # (Auto) 2.0 (1.0-3.2) Monocytes # (Auto) 0.5 (0.2-0.8) Eosinophils # (Auto) 0.2 (0.0-0.4) Basophils # (Auto) 0.0 (0.0-0.1) Absolute Immature Granulocyte (auto 0.03 x10e3/uL (0-0.1) Prothrombin Time 17.7 seconds (11.9-14.5) Prothromb Time International Ratio 1.36 Activated Partial Thromboplast Time 32.4 seconds (23.8-35.5) Sodium Level 141 mmol/L (136-145) Potassium Level 4.0 mmol/L (3.5-5.1) Chloride Level 105 mmol/L (98-107) Carbon Dioxide Level 27 mmol/L (22-29) Anion Gap 13.0 mmol/L (8-16) Blood Urea Nitrogen 16 mg/dL (7-26) Creatinine 1.10 mg/dL (0.72-1.25) Estimat Glomerular Filtration Rate > 60 ML/MIN (60-) BUN/Creatinine Ratio 15 (6-25) Glucose Level 123 mg/dL (74-118) Calcium Level 9.5 mg/dL (8.4-10.2) Total Bilirubin 0.3 mg/dL (0.2-1.2) Aspartate Amino Transf (AST/SGOT) 25 IU/L (5-34) Alanine Aminotransferase (ALT/SGPT) 32 IU/L (0-55) Alkaline Phosphatase 74 IU/L (40-150) Creatine Kinase 67 IU/L (30-200) Creatine Kinase MB 1.20 ng/mL (0-5.0) Troponin I < 0.001 ng/mL (0-0.300) B-Type Natriuretic Peptide 13.3 pg/mL (0-100) Total Protein 7.2 g/dL (6.5-8.1) Albumin 4.1 g/dL (3.5-5.0) Globulin 3.1 g/dL (2.3-3.5) Albumin/Globulin Ratio 1.3 (0.8-2.0) Laboratory Tests Test 06/14/20 22:00 White Blood Count 6.23 x10e3/uL (4.8-10.8) Red Blood Count 5.08 x10e6/uL (4.3-5.7) Hemoglobin 14.8 g/dL (14.0-18.0) Hematocrit 45.1 % (38.2-49.6) Mean Corpuscular Volume 88.8 fL (81-99) Mean Corpuscular Hemoglobin 29.1 pg (28-32) Mean Corpuscular Hemoglobin Concent 32.8 g/dL (31-35) Red Cell Distribution Width 13.8 % (11.7-14.4) Platelet Count 231 x10e3/uL (140-360) Neutrophils (%) (Auto) 56.3 % (38.7-80.0) Lymphocytes (%) (Auto) 32.1 % (18.0-39.1) Monocytes (%) (Auto) 8.0 % (4.4-11.3) Eosinophils (%) (Auto) 2.6 % (0.0-6.0) Basophils (%) (Auto) 0.5 % (0.0-1.0) Neutrophils # (Auto) 3.5 (2.1-6.9) Lymphocytes # (Auto) 2.0 (1.0-3.2) Monocytes # (Auto) 0.5 (0.2-0.8) Eosinophils # (Auto) 0.2 (0.0-0.4) Basophils # (Auto) 0.0 (0.0-0.1) Absolute Immature Granulocyte (auto 0.03 x10e3/uL (0-0.1) Lab results reviewed: Yes Imaging Imaging results reviewed: Yes Impressions Patient Name: LENIN SPENCER MR #: [id number] : 1945 Age/Sex: 74/M Req #: [id number] Adm Physician: Ordered by: NILSON ABDI MD Report #: [id number] Location: ER Room/Bed: Procedure: [id number] DX/CHEST SINGLE (PORTABLE) Exam Date: Exam Time: REPORT STATUS: Signed Examination: Single AP view of the chest. COMPARISON: AP chest 05/21/2020, CT chest 02/29/2020 INDICATION: Chest pain IMPRESSION: 1. Lines and Tubes: Stable multilead left upper chest cardiac device. 2. Lungs are grossly clear. No consolidation or effusion. Stable eventration of the right hemidiaphragm. 3. Cardiomediastinal silhouette is normal. Pulmonary vasculature is normal. 4. No acute bony abnormalities. Signed by: Dr. Patsy Rendon M.D. on 06/14/2020 11:01 PM Dictated By: PATSY RENDON MD [id number] Procedures 12 Lead ECG Interpretation ECG Interpretation : ECG: ECG 1 Violin Mechanic: Interpreted by ED physician Date: Jun 14, 2020 Time: 21:58 Rhythm: sinus tachycardia Rate: tachycardia BPM: 102 QRS axis: normal ST segments normal: Yes T waves normal: No (NONSPECIFIC CHANGES) Clinical Impression: abnormal ECG Assessment & Plan Medical Decision Making MDM PT WITH INTERMITTENT SHARP LEFT SIDE CHEST PAIN CBC, CMP, CARDIAC ENZYMES, EKG, CXR ORDERED TO EVAL FOR MYOCARDIAL INFARCTION, ELECTROLYTE ABNORMALITY, INTRATHORACIC ABNORMALITY PT WITH NEGATIVE CARDIAC ENZYMES TIMES 2, NO CHEST PAIN SINCE ARRIVAL TO ER, I SPOKE WITH DR BARAJAS, HE STATES TO DISCHARGE PT HOME AND HAVE HIM FOLLOW UP IN OFFICE ON TUESDAY Reassessment Reassessment time: 03:29 Reassessment NO EPISODES OF CHEST PAIN SINCE ARRIVAL TO ER. NEGATIVE CARDIAC ENZYMES TIMES 2. Assessment & Plan Final Impression: (1) Chest pain Depart Disposition: HOME, SELF-CARE Last Vital Signs Date Time Temp Pulse Resp B/P (MAP) Pulse Ox O2 Delivery O2 Flow Rate FiO2 06/14/20 22:27 73 20 126/89 96 06/14/20 21:50 98.2 Room Air Home Meds Reported Medications Atorvastatin Calcium (LIPITOR) 20 Mg Tablet, 40 MG PO HS, TAB 05/19/20 Tamsulosin Hcl* (FLOMAX*) 0.4 Mg Cap, 0.4 MG PO DAILY, #30 CAP 03/06/20 Midodrine Hcl (MIDODRINE HCL) 2.5 Mg Tablet, 2.5 MG PO DAILY, TAB 02/29/20 Rivaroxaban (XARELTO) 20 Mg Tablet, 20 MG PO DAILY 02/29/20 Aspirin (ASPIR 81) 81 Mg Tablet., 81 MG PO DAILY 07/18/13 NILSON ABDI MD Jun 14, 2020 22:55
--- NOTE | 2020-06-14 23:05 | Diagnostic Imaging Report ---
Examination: Single AP view of the chest. COMPARISON: AP chest 05/21/2020, CT chest 02/29/2020 INDICATION: Chest pain IMPRESSION: 1. Lines and Tubes: Stable multilead left upper chest cardiac device. 2. Lungs are grossly clear. No consolidation or effusion. Stable eventration of the right hemidiaphragm. 3. Cardiomediastinal silhouette is normal. Pulmonary vasculature is normal. 4. No acute bony abnormalities. Signed by: Dr. Jose Rendon M.D. on 06/14/2020 11:01 PM
[2020-06-15 03:19] VITALS: BP 138/83
== END 2020-06-15 03:30 | disposition home or self-care (01) ==
LOC: ER 21:55
DX: R07.9 Chest pain, unspecified (principal); R94.31 Abnormal electrocardiogram [ECG] [EKG]; I10 Essential (primary) hypertension; I48.91 Unspecified atrial fibrillation; E78.5 Hyperlipidemia, unspecified; K21.9 Gastro-esophageal reflux disease without esophagitis; Z95.0 Presence of cardiac pacemaker
CPT/HCPCS: 36415; 71045; 80053; 82550; 82553; 83880; 84484; 85025; 85610; 85730; 93005; 99284

== ENCOUNTER → 2020-12-19 | Outpatient (CLI) | payer MEDICARE, OTHER | LOC: RAD 15:54 | PROVIDERS: ATTEND Internal Medicine | DX: R06.02 Shortness of breath (principal) | CPT/HCPCS: 71046 ==

== ENCOUNTER → 2021-03-03 | Day surgery (SDC) | payer MEDICARE, OTHER ==
[2021-02-27 09:21] LABS: BASOPHILS % 0.6 % (0.0-1.0); EOSINOPHILS # (AUTO) 0.2 (0.0-0.4); HEMATOCRIT 44.5 % (38.2-49.6); HEMOGLOBIN 14.7 g/dL (14.0-18.0); LYMPHOCYTES # (AUTO) 1.3 (1.0-3.2); LYMPHOCYTES % 24.9 % (18.0-39.1); MEAN CORPUSCULAR HEMOGLOBIN 29.5 pg (28-32); MEAN CORPUSCULAR VOLUME 89.4 fL (81-99); MONOCYTES # (AUTO) 0.4 (0.2-0.8); MONOCYTES % 7.9 % (4.4-11.3); NEUTROPHILS # (AUTO) 3.4 (2.1-6.9); NEUTROPHILS % 63.4 % (38.7-80.0); PLATELET COUNT 183 x10e3/uL (140-360); RED BLOOD COUNT 4.98 x10e6/uL (4.3-5.7); RED CELL DISTRIBUTION WIDTH 14.1 % (11.7-14.4)
[~2021-03-03] MED LIST changes: +EYE DROPS OP; +OR PHACO EYE KIT ONE; +PREOP PHACO EYE KIT ONE
[2021-03-03 14:45] VITALS: BP 128/81
== END | disposition home or self-care (01) ==
LOC: OR 10:43
PROVIDERS: ATTEND Ophthalmology
DX: H25.12 Age-related nuclear cataract, left eye (principal); I25.10 Atherosclerotic heart disease of native coronary artery without angina pectoris; I48.91 Unspecified atrial fibrillation; E78.5 Hyperlipidemia, unspecified; I10 Essential (primary) hypertension; I49.5 Sick sinus syndrome; Z88.6 Allergy status to analgesic agent; Z88.0 Allergy status to penicillin; Z01.812 Encounter for preprocedural laboratory examination; Z20.822 Contact with and (suspected) exposure to COVID-19; Z79.02 Long term (current) use of antithrombotics/antiplatelets; Z95.0 Presence of cardiac pacemaker
CPT/HCPCS: 36415; 66984; 85025; U0002

== ENCOUNTER → 2021-03-17 | Day surgery (SDC) | payer MEDICARE, OTHER ==
[~2021-03-17] MED LIST changes: +EYE DROPS15 M1 OU; +FENTANYL CITRATE/PF 100MCG/2 ML INJ ONE; +MIDAZOLAM HCL 2 MG/2 ML VIAL ONE; +PREDNISONE5 MG OU
[2021-03-17 14:05] VITALS: BP 123/69
== END | disposition home or self-care (01) ==
LOC: OR 09:12
PROVIDERS: ATTEND Ophthalmology
DX: H25.11 Age-related nuclear cataract, right eye (principal); I10 Essential (primary) hypertension; Z01.812 Encounter for preprocedural laboratory examination; Z20.822 Contact with and (suspected) exposure to COVID-19; Z88.6 Allergy status to analgesic agent; Z88.0 Allergy status to penicillin; Z79.02 Long term (current) use of antithrombotics/antiplatelets; Z95.0 Presence of cardiac pacemaker
CPT/HCPCS: 66984; U0002; J2250; J3010; V2632

== ENCOUNTER → 2022-10-15 | Outpatient (CLI) | payer MEDICARE, OTHER ==
[~2022-10-15] MED LIST changes: -FENTANYL CITRATE/PF 100MCG/2 ML INJ ONE; -MIDAZOLAM HCL 2 MG/2 ML VIAL ONE; -OR PHACO EYE KIT ONE; -PREOP PHACO EYE KIT ONE
== END ==
LOC: RAD 15:49
PROVIDERS: ATTEND Internal Medicine
DX: M47.27 Other spondylosis with radiculopathy, lumbosacral region (principal)
CPT/HCPCS: 72110

== ENCOUNTER → 2024-10-12 | Outpatient (REF) | payer OTHER, MEDICARE | LOC: RAD 13:26 | PROVIDERS: ATTEND Internal Medicine | DX: R06.02 Shortness of breath (principal) | CPT/HCPCS: 71046 ==

== ENCOUNTER → 2025-03-11 | Outpatient (REF) | payer OTHER, MEDICARE | LOC: RAD 16:08 | PROVIDERS: ATTEND Internal Medicine | DX: M19.042 Primary osteoarthritis, left hand (principal); M19.041 Primary osteoarthritis, right hand ==